=== PATIENT | female | born 1980 | race Caucasian/White ===

== ENCOUNTER 2016-12-23 07:40 | Outpatient (CLI) | payer BC ==
[2016-12-23 11:53] LABS: BASOPHILS # (AUTO) 0.1 10^3/uL (0.0-0.1); BASOPHILS % (AUTO) 1.2 %; EOSINOPHILS # (AUTO) 0.2 10^3/uL (0.0-0.7); EOSINOPHILS % (AUTO) 4.5 %; LYMPHOCYTES # (AUTO) 1.8 10^3/uL (1.5-3.5); LYMPHOCYTES % (AUTO) 36.9 %; MEAN CORPUSCULAR HEMOGLOBIN 32.7 pg (27.0-31.0); MEAN CORPUSCULAR HGB CONC 34.1 g/dL (32.0-36.0); MEAN CORPUSCULAR VOLUME 95.9 fL (81.0-99.0); MONOCYTES # (AUTO) 0.5 10^3/uL (0.0-1.0); MONOCYTES % (AUTO) 9.8 %; NEUTROPHILS # (AUTO) 2.4 10^3/uL (1.5-6.6); NEUTROPHILS % (AUTO) 47.6 %; RED BLOOD COUNT 3.96 10^6/uL (4.20-5.40); RED CELL DISTRIBUTION WIDTH 12.3 % (12.0-15.0)
[2016-12-23 12:08] LABS: ALBUMIN/GLOBULIN RATIO 1.5 (1.0-2.2); BILIRUBIN,TOTAL 0.8 mg/dL (0.2-1.0); BUN - BLOOD UREA NITROGEN 16 mg/dL (6-20); CALCIUM 9.1 mg/dL (8.5-10.3); CARBON DIOXIDE - CO2 27 mmol/L (21-32); CHLORIDE 104 mmol/L (101-111); CHOL/HDL RATIO 2.9 (<4.4); CHOLESTEROL 189 mg/dL; CREATININE 0.8 mg/dL (0.4-1.0); GFR - MDRD 82 (>89); GLUCOSE 96 mg/dL (70-100); HDL CHOLESTEROL 66 mg/dL; LDL/HDL RATIO 1.6 (<4.4); SODIUM 137 mmol/L (135-145); TOTAL PROTEIN 7.5 g/dL (6.7-8.2); TRIGLYCERIDES 87 mg/dL; VLDL CHOLESTEROL 17 mg/dL
== END 2016-12-23 07:41 | disposition home or self-care (01) ==
LOC: LAB.F 07:40
PROVIDERS: ATTEND Nurse Practitioner Family
DX: Z00.00 Encounter for general adult medical examination without abnormal findings (principal); E55.9 Vitamin D deficiency, unspecified; E78.5 Hyperlipidemia, unspecified
CPT/HCPCS: 36415; 80053; 80061; 82306; 85025

== ENCOUNTER 2017-01-01 11:02 | Outpatient (CLI) | payer BC ==
[2017-01-01 19:15] LABS: THYROID STIMULATING HORMONE 0.9 uIU/mL (0.34-5.60)
== END 2017-01-01 11:03 | disposition home or self-care (01) ==
LOC: LAB.F 11:02
PROVIDERS: ATTEND Nurse Practitioner Family
DX: R53.83 Other fatigue (principal)
CPT/HCPCS: 36415; 84436; 84439; 84443; 84481; 86376; 86800

== ENCOUNTER 2017-12-19 13:49 | Outpatient (CLI) | payer OTHER ==
--- NOTE | 2017-12-19 14:32 | XRAY Report ---
Procedure Date: 12/19/2017 Accession Number: [id number] / [id number] Procedure: XRS - Chest 2 View X-Ray CPT Code: 47273 FULL RESULT: EXAM: Chest 2 View X-Ray DATE: 12/19/2017 2:06 PM CLINICAL HISTORY: SOB, COUGH COMPARISON: None. TECHNIQUE: 2 views. FINDINGS: Lungs/Pleura: No focal opacities evident. No pneumothorax or pleural effusion. Normal volumes. Mediastinum: Heart and mediastinal contours are unremarkable. Other: None. IMPRESSION: Normal 2-view chest radiography. [facility]
== END 2017-12-19 13:50 | disposition home or self-care (01) ==
LOC: DI.S 13:49
PROVIDERS: ATTEND Nurse Practitioner Family
DX: R06.02 Shortness of breath (principal); R05 Cough
CPT/HCPCS: 71046

== ENCOUNTER 2018-07-23 09:29 | Outpatient (CLI) | payer OTHER ==
[2018-07-23 17:56] LABS: BASOPHILS % (AUTO) 0.8 %; EOSINOPHILS # (AUTO) 0.2 10^3/uL (0.0-0.7); EOSINOPHILS % (AUTO) 3.4 %; LYMPHOCYTES # (AUTO) 1.3 10^3/uL (1.5-3.5); LYMPHOCYTES % (AUTO) 25.6 %; MEAN CORPUSCULAR HEMOGLOBIN 32.7 pg (27.0-31.0); MEAN CORPUSCULAR HGB CONC 33.1 g/dL (32.0-36.0); MEAN CORPUSCULAR VOLUME 98.9 fL (81.0-99.0); MEAN PLATELET VOLUME 7.8 fL (7.9-10.8); MONOCYTES # (AUTO) 0.4 10^3/uL (0.0-1.0); MONOCYTES % (AUTO) 8.6 %; NEUTROPHILS # (AUTO) 3.2 10^3/uL (1.5-6.6); NEUTROPHILS % (AUTO) 61.6 %; PLT - PLATELET COUNT 254 10^3/uL (130-450); RED BLOOD COUNT 3.98 10^6/uL (4.20-5.40); RED CELL DISTRIBUTION WIDTH 12.5 % (12.0-15.0); WHITE BLOOD COUNT 5.2 x10^3/uL (4.8-10.8)
[2018-07-23 18:24] LABS: ALBUMIN 4.3 g/dL (3.2-5.5); ALBUMIN/GLOBULIN RATIO 1.3 (1.0-2.2); ALKALINE PHOSPHATASE 51 IU/L (42-121); ALT ALANINE AMINOTRANSFERASE 15 IU/L (10-60); AST ASPARTATE AMINOTRANSFERASE 24 IU/L (10-42); BUN - BLOOD UREA NITROGEN 14 mg/dL (6-20); CALCIUM 8.9 mg/dL (8.5-10.3); CARBON DIOXIDE - CO2 27 mmol/L (21-32); CHLORIDE 104 mmol/L (101-111); CHOL/HDL RATIO 2.9 (<4.4); CHOLESTEROL 194 mg/dL; CREATININE 0.9 mg/dL (0.4-1.0); GFR - MDRD 71 (>89); GLUCOSE 94 mg/dL (70-100); HDL CHOLESTEROL 67 mg/dL; LDL CHOLESTEROL,CALCULATED 106 mg/dL; LDL/HDL RATIO 1.6 (<4.4); SODIUM 137 mmol/L (135-145); TOTAL PROTEIN 7.7 g/dL (6.7-8.2); VLDL CHOLESTEROL 21 mg/dL
== END 2018-07-23 09:30 | disposition home or self-care (01) ==
LOC: LAB.F 09:29
PROVIDERS: ATTEND Nurse Practitioner Family
DX: Z00.00 Encounter for general adult medical examination without abnormal findings (principal); E55.9 Vitamin D deficiency, unspecified; E78.5 Hyperlipidemia, unspecified
CPT/HCPCS: 36415; 80053; 80061; 82306; 83721; 85025

== ENCOUNTER 2019-11-02 06:49 | Outpatient (CLI) | payer OTHER ==
[2019-11-02 07:04] LABS: BASOPHILS # (AUTO) 0.1 10^3/uL (0.0-0.1); BASOPHILS % (AUTO) 1.3 %; EOSINOPHILS # (AUTO) 0.1 10^3/uL (0.0-0.7); EOSINOPHILS % (AUTO) 2.4 %; HGB - HEMOGLOBIN 12.6 g/dL (12.0-16.0); LYMPHOCYTES # (AUTO) 2.2 10^3/uL (1.5-3.5); LYMPHOCYTES % (AUTO) 39.4 %; MEAN CORPUSCULAR HEMOGLOBIN 32.7 pg (27.0-31.0); MEAN CORPUSCULAR HGB CONC 32.6 g/dL (32.0-36.0); MEAN CORPUSCULAR VOLUME 100.5 fL (81.0-99.0); MEAN PLATELET VOLUME 9.1 fL (7.9-10.8); MONOCYTES # (AUTO) 0.6 10^3/uL (0.0-1.0); MONOCYTES % (AUTO) 10.1 %; NEUTROPHILS # (AUTO) 2.5 10^3/uL (1.5-6.6); NEUTROPHILS % (AUTO) 46.6 %; PLT - PLATELET COUNT 247 10^3/uL (130-450); RED BLOOD COUNT 3.85 10^6/uL (4.20-5.40); WHITE BLOOD COUNT 5.5 x10^3/uL (4.8-10.8)
[2019-11-02 07:21] LABS: ALBUMIN 4.2 g/dL (3.2-5.5); ALBUMIN/GLOBULIN RATIO 1.2 (1.0-2.2); BILIRUBIN,TOTAL 0.8 mg/dL (0.2-1.0); CALCIUM 8.9 mg/dL (8.5-10.3); CREATININE 0.9 mg/dL (0.4-1.0); TOTAL PROTEIN 7.6 g/dL (6.7-8.2)
--- NOTE | 2019-11-02 08:28 | Ultrasound Report ---
Reason: LEFT UPPER QUADRANT PAIN Procedure Date: 11/02/2019 Accession Number: [id number] / [id number] Procedure: US - Abdomen Complete CPT Code: Final Report FULL RESULT: EXAM: ABDOMEN ULTRASOUND EXAM DATE: 11/02/2019 07:58 AM. CLINICAL HISTORY: LEFT UPPER QUADRANT PAIN. COMPARISON: None. TECHNIQUE: Real-time scanning was performed with static images obtained. FINDINGS: Liver: Liver parenchyma is heterogeneous and moderately hyperechoic. No discrete liver masses or intrahepatic bile duct dilation. However, evaluation for masses is limited secondary to the echogenicity. Right liver measures 15.2 cm. Main portal vein flow: Hepatopetal. Gallbladder: Normal. No stones, wall thickening, or sonographic Alvarado's sign. Biliary System: Common bile duct measures 4.8 mm. No intrahepatic or extrahepatic ductal dilatation. Pancreas: Visualized portion is unremarkable. Kidneys: Right: 10.8 cm longitudinally. No contour-deforming mass, stones, or hydronephrosis. Prominent renal pyramids are noted. Left: 10.7 cm longitudinally. No contour-deforming mass, stones, or hydronephrosis. Spleen: Length measures 9.5 cm. Normal in size and echotexture. Aorta and Inferior Vena Cava: Unremarkable. Other: At the site of the patient's discomfort, there is a probable small fat-containing reducible periumbilical hernia. No incarcerated bowel. Defect measures up to 0.6 cm. IMPRESSION: 1. No liver mass or intrahepatic dilation.Echogenic probably fatty liver. 2. Normal gallbladder and common bile duct. 3. Normal pancreas. 4. Suspected small fat containing periumbilical hernia. RAD[facility]
== END 2019-11-02 06:50 | disposition home or self-care (01) ==
LOC: DI 06:49
PROVIDERS: ATTEND Nurse Practitioner Family
DX: R10.12 Left upper quadrant pain (principal)
CPT/HCPCS: 36415; 76700; 80053; 85025

== ENCOUNTER 2019-11-04 07:34 | Outpatient (CLI) | payer OTHER ==
[2019-11-04 08:21] LABS: BILIRUBIN,URINE NEGATIVE (NEGATIVE); GLUCOSE, URINE (UA) NEGATIVE (NEGATIVE); KETONES,URINE (UA) NEGATIVE (NEGATIVE); LEUKOCYTE ESTERASE, URINE NEGATIVE (NEGATIVE); NITRITE,URINE NEGATIVE (NEGATIVE); OCCULT BLOOD,URINE NEGATIVE (NEGATIVE); PROTEIN,URINE NEGATIVE (NEGATIVE); UROBILINOGEN,URINE 0.2 (NORMAL) E.U./dL (NORMAL)
[2019-11-04 08:35] LABS: CLARITY,URINE CLEAR (CLEAR)
[2019-11-04 08:44] LABS: BACTERIA,URINE Rare /HPF (None Seen); RBC,URINE 0-5 /HPF (0-5); SQUAMOUS EPITHELIAL CELL,UR RARE Squamous (<= Few)
[2019-11-04 09:16] LABS: HB2 TOTAL 12.8 g/dL; HEMOGLOBIN A1C 0.42 g/dL; HEMOGLOBIN A1C % 5.2 % (4.6-6.2)
== END 2019-11-04 07:35 | disposition home or self-care (01) ==
LOC: LAB 07:34
PROVIDERS: ATTEND Nurse Practitioner Family
DX: R30.0 Dysuria (principal); R73.9 Hyperglycemia, unspecified
CPT/HCPCS: 36415; 81001; 82947; 83036; 83921; 87086

== ENCOUNTER 2020-03-31 07:13 | Outpatient (CLI) | payer OTHER ==
[2020-03-31 15:41] LABS: BASOPHILS # (AUTO) 0.1 10^3/uL (0.0-0.1); BASOPHILS % (AUTO) 1.2 %; EOSINOPHILS # (AUTO) 0.1 10^3/uL (0.0-0.7); EOSINOPHILS % (AUTO) 2.3 %; HGB - HEMOGLOBIN 12.5 g/dL (12.0-16.0); LYMPHOCYTES # (AUTO) 1.8 10^3/uL (1.5-3.5); LYMPHOCYTES % (AUTO) 41.5 %; MEAN CORPUSCULAR HEMOGLOBIN 33.4 pg (27.0-31.0); MEAN CORPUSCULAR HGB CONC 32.3 g/dL (32.0-36.0); MEAN CORPUSCULAR VOLUME 103.5 fL (81.0-99.0); MEAN PLATELET VOLUME 9.5 fL (7.9-10.8); MONOCYTES # (AUTO) 0.5 10^3/uL (0.0-1.0); MONOCYTES % (AUTO) 10.5 %; NEUTROPHILS # (AUTO) 1.9 10^3/uL (1.5-6.6); NEUTROPHILS % (AUTO) 44.3 %; PLT - PLATELET COUNT 280 10^3/uL (130-450); RED BLOOD COUNT 3.74 10^6/uL (4.20-5.40); RED CELL DISTRIBUTION WIDTH 12.5 % (12.0-15.0); WHITE BLOOD COUNT 4.3 x10^3/uL (4.8-10.8)
[2020-03-31 16:14] LABS: ALBUMIN 4.3 g/dL (3.2-5.5); ALBUMIN/GLOBULIN RATIO 1.5 (1.0-2.2); ALKALINE PHOSPHATASE 44 IU/L (42-121); ALT ALANINE AMINOTRANSFERASE 15 IU/L (10-60); AST ASPARTATE AMINOTRANSFERASE 21 IU/L (10-42); BILIRUBIN,TOTAL 0.7 mg/dL (0.2-1.0); BUN - BLOOD UREA NITROGEN 10 mg/dL (6-20); CALCIUM 9.1 mg/dL (8.5-10.3); CARBON DIOXIDE - CO2 27 mmol/L (21-32); CHLORIDE 102 mmol/L (101-111); CHOL/HDL RATIO 2.2 (<4.4); CHOLESTEROL 179 mg/dL; CREATININE 0.9 mg/dL (0.4-1.0); GLUCOSE 97 mg/dL (70-100); HDL CHOLESTEROL 80 mg/dL; LDL CHOLESTEROL,CALCULATED 89 mg/dL; LDL/HDL RATIO 1.1 (<4.4); SODIUM 138 mmol/L (135-145); TOTAL PROTEIN 7.2 g/dL (6.7-8.2); VLDL CHOLESTEROL 10 mg/dL
== END 2020-03-31 07:14 | disposition home or self-care (01) ==
LOC: LAB.S 07:13
PROVIDERS: ATTEND Nurse Practitioner Family
DX: Z00.00 Encounter for general adult medical examination without abnormal findings (principal); E78.5 Hyperlipidemia, unspecified; E55.9 Vitamin D deficiency, unspecified
CPT/HCPCS: 36415; 80053; 80061; 82306; 82728; 83721; 85025

== ENCOUNTER 2020-05-22 11:14 | Outpatient (CLI) | payer OTHER ==
[2020-05-22 14:37] LABS: BASOPHILS # (AUTO) 0.1 10^3/uL (0.0-0.1); BASOPHILS % (AUTO) 0.8 %; EOSINOPHILS % (AUTO) 0.5 %; HGB - HEMOGLOBIN 12.3 g/dL (12.0-16.0); LYMPHOCYTES # (AUTO) 1.2 10^3/uL (1.5-3.5); LYMPHOCYTES % (AUTO) 18.3 %; MEAN CORPUSCULAR HEMOGLOBIN 33.2 pg (27.0-31.0); MEAN CORPUSCULAR HGB CONC 32.9 g/dL (32.0-36.0); MEAN CORPUSCULAR VOLUME 101.1 fL (81.0-99.0); MEAN PLATELET VOLUME 9.9 fL (7.9-10.8); MONOCYTES # (AUTO) 0.4 10^3/uL (0.0-1.0); MONOCYTES % (AUTO) 6.4 %; NEUTROPHILS # (AUTO) 4.8 10^3/uL (1.5-6.6); NEUTROPHILS % (AUTO) 73.7 %; PLT - PLATELET COUNT 301 10^3/uL (130-450); RED CELL DISTRIBUTION WIDTH 11.8 % (12.0-15.0); WHITE BLOOD COUNT 6.5 x10^3/uL (4.8-10.8)
[2020-05-22 15:32] LABS: ALBUMIN 4.4 g/dL (3.2-5.5); ALBUMIN/GLOBULIN RATIO 1.4 (1.0-2.2); ALKALINE PHOSPHATASE 40 IU/L (42-121); ALT ALANINE AMINOTRANSFERASE 18 IU/L (10-60); AST ASPARTATE AMINOTRANSFERASE 22 IU/L (10-42); BILIRUBIN,TOTAL 0.8 mg/dL (0.2-1.0); BUN - BLOOD UREA NITROGEN 16 mg/dL (6-20); CALCIUM 9.4 mg/dL (8.5-10.3); CARBON DIOXIDE - CO2 26 mmol/L (21-32); CHLORIDE 98 mmol/L (101-111); CREATININE 0.8 mg/dL (0.4-1.0); GLUCOSE 131 mg/dL (70-100); SODIUM 137 mmol/L (135-145); TOTAL PROTEIN 7.5 g/dL (6.7-8.2)
[2020-05-22 15:37] LABS: CRP HIGH SENSITIVITY < 0.5 mg/L
== END 2020-05-22 11:15 | disposition home or self-care (01) ==
LOC: LAB.S 11:14
PROVIDERS: ATTEND Nurse Practitioner Family
DX: R50.9 Fever, unspecified (principal); R10.2 Pelvic and perineal pain
CPT/HCPCS: 36415; 80053; 85025; 86141

== ENCOUNTER 2021-05-16 11:30 | Outpatient (CLI) | payer BC, OTHER ==
[2021-05-16 21:21] LABS: BACTERIAL VAGINOSIS DNA POSITIVE (NEGATIVE); CANDIDA GLABRATA DNA NEGATIVE (NEGATIVE); CANDIDA GROUP DNA POSITIVE (NEGATIVE); CANDIDA KRUSEI DNA NEGATIVE (NEGATIVE); TRICHOMONAS VAGINALIS DNA NEGATIVE (NEGATIVE)
[2021-05-16 22:04] LABS: CHLAMYDIA TRACHOMATIS DNA NEGATIVE (NEGATIVE); NEISSERIA GONORRHOEAE DNA NEGATIVE (NEGATIVE); TRICHOMONAS VAGINALIS DNA NEGATIVE (NEGATIVE)
== END 2021-05-16 23:59 | disposition home or self-care (01) ==
LOC: LAB 11:30
PROVIDERS: ATTEND Nurse Practitioner Obstetrics & Gynecology
DX: N89.8 Other specified noninflammatory disorders of vagina (principal); Z11.3 Encounter for screening for infections with a predominantly sexual mode of transmission
CPT/HCPCS: 87491; 87591; 87661; 87801

== ENCOUNTER 2021-08-12 16:20 | Emergency (ER) | payer OTHER ==
[2021-08-12] MEDS ORDERED: IBUPROFEN 800 MG TABLET PO STA (16:31)
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
[2021-08-12 16:38] VITALS: BP 136/92
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
== END 2021-08-12 17:10 | disposition home or self-care (01) ==
LOC: EDUNIT# → ED 16:20
DX: S09.90XA Unspecified injury of head, initial encounter (principal); M54.2 Cervicalgia; Y04.2XXA Assault by strike against or bumped into by another person, initial encounter; Y93.89 Activity, other specified; Y92.009 Unspecified place in unspecified non-institutional (private) residence as the place of occurrence of the external cause
CPT/HCPCS: 70450; 72125; 99282; 99284; A9270

== ENCOUNTER 2022-05-28 12:39 | Outpatient (CLI) | payer OTHER ==
[2022-05-28 12:55] LABS: HCT - HEMATOCRIT 36.7 % (37.0-47.0); HGB - HEMOGLOBIN 12.2 g/dL (12.0-16.0); MEAN CORPUSCULAR HEMOGLOBIN 33.4 pg (27.0-31.0); MEAN CORPUSCULAR HGB CONC 33.2 g/dL (32.0-36.0); MEAN CORPUSCULAR VOLUME 100.5 fL (81.0-99.0); MEAN PLATELET VOLUME 9.2 fL (7.9-10.8); RED BLOOD COUNT 3.65 10^6/uL (4.20-5.40); RED CELL DISTRIBUTION WIDTH 11.9 % (12.0-15.0); WHITE BLOOD COUNT 5.6 x10^3/uL (4.8-10.8)
[2022-05-28 13:21] LABS: THYROID STIMULATING HORMONE 0.7 uIU/mL (0.34-5.60)
[2022-05-28 13:25] LABS: FREE T4 (FREE THYROXINE) 0.78 ng/dL (0.58-1.64)
[2022-05-28 13:32] LABS: ALBUMIN 4.6 g/dL (3.2-5.5); ALBUMIN/GLOBULIN RATIO 1.4 (1.0-2.2); ALKALINE PHOSPHATASE 51 IU/L (42-121); ALT ALANINE AMINOTRANSFERASE 18 IU/L (10-60); AST ASPARTATE AMINOTRANSFERASE 26 IU/L (10-42); BILIRUBIN,TOTAL 0.8 mg/dL (0.2-1.0); BUN - BLOOD UREA NITROGEN 18 mg/dL (6-20); CALCIUM 9.7 mg/dL (8.5-10.3); CARBON DIOXIDE - CO2 26 mmol/L (21-32); CHLORIDE 99 mmol/L (101-111); CHOLESTEROL 203 mg/dL; CREATININE 0.9 mg/dL (0.4-1.0); GFR - MDRD 70 (>89); GLUCOSE 92 mg/dL (70-100); HDL CHOLESTEROL 104 mg/dL; POTASSIUM 4.1 mmol/L (3.5-5.0); SODIUM 137 mmol/L (135-145); TRIGLYCERIDES 32 mg/dL
== END 2022-05-28 12:40 | disposition home or self-care (01) ==
LOC: LAB 12:39
PROVIDERS: ATTEND Nurse Practitioner Obstetrics & Gynecology
DX: Z01.89 Encounter for other specified special examinations (principal)
CPT/HCPCS: 36415; 80053; 80061; 83721; 84439; 84443; 85027

== ENCOUNTER 2022-07-25 08:00 | Outpatient (CLI) | payer OTHER ==
[2022-07-26 22:59] LABS: BACTERIAL VAGINOSIS DNA NEGATIVE (NEGATIVE); CANDIDA GLABRATA DNA NEGATIVE (NEGATIVE); CANDIDA GROUP DNA NEGATIVE (NEGATIVE); CANDIDA KRUSEI DNA NEGATIVE (NEGATIVE); TRICHOMONAS VAGINALIS DNA NEGATIVE (NEGATIVE)
[2022-07-27 00:01] LABS: CHLAMYDIA TRACHOMATIS DNA NEGATIVE (NEGATIVE); NEISSERIA GONORRHOEAE DNA NEGATIVE (NEGATIVE); TRICHOMONAS VAGINALIS DNA NEGATIVE (NEGATIVE)
== END 2022-07-25 23:59 | disposition home or self-care (01) ==
LOC: LAB.WC 08:00
PROVIDERS: ATTEND Obstetrics & Gynecology
DX: N89.8 Other specified noninflammatory disorders of vagina (principal); Z11.3 Encounter for screening for infections with a predominantly sexual mode of transmission
CPT/HCPCS: 81514; 87491; 87591; 87661

== ENCOUNTER 2022-08-07 19:12 | Emergency (ER) | payer OTHER ==
[2022-08-07 19:28] VITALS: BP 113/67
[2022-08-07] MEDS ORDERED: ONDANSETRON ODT 4 MG TABLET TL STA (19:37)
[2022-08-07] MEDS ORDERED: HYDROcod/ACETAM 5/325 MG TABLET PO STA (19:37)
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
--- OUTSIDE RECORDS SUMMARY | 2022-08-07 19:58 | EXTERNAL MEDICAL SUMMARY RPT | Continuity of Care Document ---
:1980 Author Organization [facility] Address [address] [place] [address] Phone Care Team Providers Name Role Phone Unavailable Unavailable Unavailable Yuliet Tripp Cnm, Alicia Unavailable Unavailable Allergies No information. Encounters No information. Functional Status No information. Immunizations No information. Medications No information. Problems No information. Procedures No information. Results/Labs test date author facility value unit interpret ation Result panel 1 (unknown) (no date) (unknown) All (no value) (units unknown ) (unknown) Result panel 2 (unknown) (no date) (unknown) All (no value) (units unknown ) (unknown) Result panel 3 (unknown) (no date) (unknown) All (no value) (units unknown ) (unknown) Result panel 4 (unknown) (no date) (unknown) All (no value) (units unknown ) (unknown) Result panel 5 (unknown) (no date) (unknown) All (no value) (units unknown ) (unknown) Result panel 6 (unknown) (no date) (unknown) All (no value) (units unknown ) (unknown) Result panel 7 (unknown) (no date) (unknown) All (no value) (units unknown ) (unknown) Result panel 8 (unknown) (no date) (unknown) All (no value) (units unknown ) (unknown) Result panel 9 (unknown) (no date) (unknown) All (no value) (units unknown ) (unknown) Result panel 10 (unknown) (no date) (unknown) All (no value) (units unknown ) (unknown) Result panel 11 (unknown) (no date) (unknown) All (no value) (units unknown ) (unknown) Result panel 12 (unknown) (no date) (unknown) All (no value) (units unknown ) (unknown) Result panel 13 (unknown) (no date) (unknown) All (no value) (units unknown ) (unknown) Result panel 14 (unknown) (no date) (unknown) All (no value) (units unknown ) (unknown) Result panel 15 (unknown) (no date) (unknown) All (no value) (units unknown ) (unknown) Result panel 16 (unknown) (no date) (unknown) All (no value) (units unknown ) (unknown) Result panel 17 (unknown) (no date) (unknown) All (no value) (units unknown ) (unknown) Result panel 18 (unknown) (no date) (unknown) All (no value) (units unknown ) (unknown) Result panel 19 (unknown) (no date) (unknown) All (no value) (units unknown ) (unknown) Result panel 20 (unknown) (no date) (unknown) All (no value) (units unknown ) (unknown) Result panel 21 (unknown) (no date) (unknown) All (no value) (units unknown ) (unknown) Result panel 22 (unknown) (no date) (unknown) All (no value) (units unknown ) (unknown) Result panel 23 (unknown) (no date) (unknown) All (no value) (units unknown ) (unknown) Result panel 24 (unknown) (no date) (unknown) All (no value) (units unknown ) (unknown) Result panel 25 (unknown) (no date) (unknown) All (no value) (units unknown ) (unknown) Result panel 26 (unknown) (no date) (unknown) All (no value) (units unknown ) (unknown) Result panel 27 (unknown) (no date) (unknown) All (no value) (units unknown ) (unknown) Result panel 28 (unknown) (no date) (unknown) All (no value) (units unknown ) (unknown) Result panel 29 (unknown) (no date) (unknown) All (no value) (units unknown ) (unknown) Result panel 30 (unknown) (no date) (unknown) All (no value) (units unknown ) (unknown) Result panel 31 (unknown) (no date) (unknown) All (no value) (units unknown ) (unknown) Result panel 32 (unknown) (no date) (unknown) All (no value) (units unknown ) (unknown) Result panel 33 (unknown) (no date) (unknown) All (no value) (units unknown ) (unknown) Result panel 34 (unknown) (no date) (unknown) All (no value) (units unknown ) (unknown) Result panel 35 (unknown) (no date) (unknown) All (no value) (units unknown ) (unknown) Result panel 36 (unknown) (no date) (unknown) All (no value) (units unknown ) (unknown) Result panel 37 (unknown) (no date) (unknown) All (no value) (units unknown ) (unknown) Result panel 38 (unknown) (no date) (unknown) All (no value) (units unknown ) (unknown) Result panel 39 (unknown) (no date) (unknown) All (no value) (units unknown ) (unknown) Result panel 40 (unknown) (no date) (unknown) All (no value) (units unknown ) (unknown) Result panel 41 (unknown) (no date) (unknown) All (no value) (units unknown ) (unknown) Result panel 42 (unknown) (no date) (unknown) All (no value) (units unknown ) (unknown) Result panel 43 (unknown) (no date) (unknown) All (no value) (units unknown ) (unknown) Result panel 44 (unknown) (no date) (unknown) All (no value) (units unknown ) (unknown) Result panel 45 (unknown) (no date) (unknown) All (no value) (units unknown ) (unknown) Result panel 46 (unknown) (no date) (unknown) All (no value) (units unknown ) (unknown) Result panel 47 (unknown) (no date) (unknown) All (no value) (units unknown ) (unknown) Result panel 48 (unknown) (no date) (unknown) All (no value) (units unknown ) (unknown) Result panel 49 (unknown) (no date) (unknown) All (no value) (units unknown ) (unknown) Result panel 50 (unknown) (no date) (unknown) All (no value) (units unknown ) (unknown) Result panel 51 (unknown) (no date) (unknown) All (no value) (units unknown ) (unknown) Result panel 52 (unknown) (no date) (unknown) All (no value) (units unknown ) (unknown) Result panel 53 (unknown) (no date) (unknown) All (no value) (units unknown ) (unknown) Result panel 54 (unknown) (no date) (unknown) All (no value) (units unknown ) (unknown) Result panel 55 (unknown) (no date) (unknown) All (no value) (units unknown ) (unknown) Result panel 56 (unknown) (no date) (unknown) All (no value) (units unknown ) (unknown) Result panel 57 (unknown) (no date) (unknown) All (no value) (units unknown ) (unknown) Result panel 58 (unknown) (no date) (unknown) All (no value) (units unknown ) (unknown) Result panel 59 (unknown) (no date) (unknown) All (no value) (units unknown ) (unknown) Result panel 60 (unknown) (no date) (unknown) All (no value) (units unknown ) (unknown) Result panel 61 (unknown) (no date) (unknown) All (no value) (units unknown ) (unknown) Result panel 62 (unknown) (no date) (unknown) All (no value) (units unknown ) (unknown) Result panel 63 (unknown) (no date) (unknown) All (no value) (units unknown ) (unknown) Result panel 64 (unknown) (no date) (unknown) All (no value) (units unknown ) (unknown) Result panel 65 (unknown) (no date) (unknown) All (no value) (units unknown ) (unknown) Result panel 66 (unknown) (no date) (unknown) All (no value) (units unknown ) (unknown) Result panel 67 (unknown) (no date) (unknown) All (no value) (units unknown ) (unknown) Result panel 68 (unknown) (no date) (unknown) All (no value) (units unknown ) (unknown) Result panel 69 (unknown) (no date) (unknown) All (no value) (units unknown ) (unknown) Result panel 70 (unknown) (no date) (unknown) All (no value) (units unknown ) (unknown) Result panel 71 (unknown) (no date) (unknown) All (no value) (units unknown ) (unknown) Result panel 72 (unknown) (no date) (unknown) All (no value) (units unknown ) (unknown) Result panel 73 (unknown) (no date) (unknown) All (no value) (units unknown ) (unknown) Result panel 74 (unknown) (no date) (unknown) All (no value) (units unknown ) (unknown) Result panel 75 (unknown) (no date) (unknown) All (no value) (units unknown ) (unknown) Result panel 76 (unknown) (no date) (unknown) All (no value) (units unknown ) (unknown) Result panel 77 (unknown) (no date) (unknown) All (no value) (units unknown ) (unknown) Result panel 78 (unknown) (no date) (unknown) All (no value) (units unknown ) (unknown) Result panel 79 (unknown) (no date) (unknown) All (no value) (units unknown ) (unknown) Result panel 80 (unknown) (no date) (unknown) All (no value) (units unknown ) (unknown) Result panel 81 (unknown) (no date) (unknown) All (no value) (units unknown ) (unknown) Result panel 82 (unknown) (no date) (unknown) All (no value) (units unknown ) (unknown) Result panel 83 (unknown) (no date) (unknown) All (no value) (units unknown ) (unknown) Result panel 84 (unknown) (no date) (unknown) All (no value) (units unknown ) (unknown) Result panel 85 (unknown) (no date) (unknown) All (no value) (units unknown ) (unknown) Result panel 86 (unknown) (no date) (unknown) All (no value) (units unknown ) (unknown) Result panel 87 (unknown) (no date) (unknown) All (no value) (units unknown ) (unknown) Result panel 88 (unknown) (no date) (unknown) All (no value) (units unknown ) (unknown) Result panel 89 (unknown) (no date) (unknown) All (no value) (units unknown ) (unknown) Result panel 90 (unknown) (no date) (unknown) All (no value) (units unknown ) (unknown) Result panel 91 (unknown) (no date) (unknown) All (no value) (units unknown ) (unknown) Result panel 92 (unknown) (no date) (unknown) All (no value) (units unknown ) (unknown) Result panel 93 (unknown) (no date) (unknown) All (no value) (units unknown ) (unknown) Result panel 94 (unknown) (no date) (unknown) All (no value) (units unknown ) (unknown) Result panel 95 (unknown) (no date) (unknown) All (no value) (units unknown ) (unknown) Result panel 96 (unknown) (no date) (unknown) All (no value) (units unknown ) (unknown) Result panel 97 (unknown) (no date) (unknown) All (no value) (units unknown ) (unknown) Result panel 98 (unknown) (no date) (unknown) All (no value) (units unknown ) (unknown) Result panel 99 (unknown) (no date) (unknown) All (no value) (units unknown ) (unknown) Result panel 100 (unknown) (no date) (unknown) All (no value) (units unknown ) (unknown) Result panel 101 (unknown) (no date) (unknown) All (no value) (units unknown ) (unknown) Result panel 102 (unknown) (no date) (unknown) All (no value) (units unknown ) (unknown) Result panel 103 (unknown) (no date) (unknown) All (no value) (units unknown ) (unknown) Result panel 104 (unknown) (no date) (unknown) All (no value) (units unknown ) (unknown) Result panel 105 (unknown) (no date) (unknown) All (no value) (units unknown ) (unknown) Result panel 106 (unknown) (no date) (unknown) All (no value) (units unknown ) (unknown) Result panel 107 (unknown) (no date) (unknown) All (no value) (units unknown ) (unknown) Result panel 108 (unknown) (no date) (unknown) All (no value) (units unknown ) (unknown) Result panel 109 (unknown) (no date) (unknown) All (no value) (units unknown ) (unknown) Result panel 110 (unknown) (no date) (unknown) All (no value) (units unknown ) (unknown) Result panel 111 (unknown) (no date) (unknown) All (no value) (units unknown ) (unknown) Result panel 112 (unknown) (no date) (unknown) All (no value) (units unknown ) (unknown) Result panel 113 (unknown) (no date) (unknown) All (no value) (units unknown ) (unknown) Result panel 114 (unknown) (no date) (unknown) All (no value) (units unknown ) (unknown) Result panel 115 (unknown) (no date) (unknown) All (no value) (units unknown ) (unknown) Result panel 116 (unknown) (no date) (unknown) All (no value) (units unknown ) (unknown) Result panel 117 (unknown) (no date) (unknown) All (no value) (units unknown ) (unknown) Result panel 118 (unknown) (no date) (unknown) All (no value) (units unknown ) (unknown) Result panel 119 (unknown) (no date) (unknown) All (no value) (units unknown ) (unknown) Result panel 120 (unknown) (no date) (unknown) All (no value) (units unknown ) (unknown) Result panel 121 (unknown) (no date) (unknown) All (no value) (units unknown ) (unknown) Result panel 122 (unknown) (no date) (unknown) All (no value) (units unknown ) (unknown) Result panel 123 (unknown) (no date) (unknown) All (no value) (units unknown ) (unknown) Result panel 124 (unknown) (no date) (unknown) All (no value) (units unknown ) (unknown) Social History date description facility 2022-05-28 00:00 Unknown if ever smoked All 2022-05-29 00:00 Unknown if ever smoked All 2022-06-06 00:00 Unknown if ever smoked All Vital Signs No information.
--- NOTE | 2022-08-07 20:03 | XRAY Report ---
PROCEDURE: Foot 3 View LT INDICATIONS: injury TECHNIQUE: 3 views of the foot were acquired. COMPARISON: None FINDINGS: Bones: No fractures or dislocations. No suspicious bony lesions. Soft tissues: No tibiotalar joint effusion. Achilles tendon appears normal. IMPRESSION: No acute fracture. No osseous lesion. If symptoms and/or clinical suspicion for pathology continue, f urther assessment with repeat plain films, or advanced imaging (e.g., CT, MRI, or bone scan) is recom mended for further assessment. Reviewed by: Kaylee Shea MD on 08/07/2022 8:02 PM [facility] Approved by: Kaylee Shea MD on 08/07/2022 8:02 PM PST Station ID: [id number]
--- NOTE | 2022-08-07 20:05 | XRAY Report ---
PROCEDURE: Foot 3 View RT INDICATIONS: right foot injury (both feet) TECHNIQUE: 3 views of the foot were acquired. COMPARISON: None. FINDINGS: Bones: No fractures or dislocations. No suspicious bony lesions. Soft tissues: No tibiotalar joint effusion. Achilles tendon appears normal. IMPRESSION: 1. No fracture or dislocation. Reviewed by: Nagi Shukla MD on 08/07/2022 8:04 PM [facility] Approved by: Nagi Shukla MD on 08/07/2022 8:04 PM [facility] Station ID: [id number]
== END 2022-08-07 20:19 | disposition home or self-care (01) ==
LOC: ED 19:12
DX: S99.922A Unspecified injury of left foot, initial encounter (principal); T23.001A Burn of unspecified degree of right hand, unspecified site, initial encounter; V80.010A Animal-rider injured by fall from or being thrown from horse in noncollision accident, initial encounter; Y93.52 Activity, horseback riding; Y92.838 Other recreation area as the place of occurrence of the external cause
CPT/HCPCS: 73630; 99283; 99284; A9270; Q0162

== ENCOUNTER → 2023-07-08 | Outpatient (CLI) | payer OTHER | END | disposition short-term general hospital (02) | LOC: EMS 19:16 | DX: S01.112A Laceration without foreign body of left eyelid and periocular area, initial encounter (principal); S09.90XA Unspecified injury of head, initial encounter; W55.12XA Struck by horse, initial encounter; Y93.K9 Activity, other involving animal care; Y92.009 Unspecified place in unspecified non-institutional (private) residence as the place of occurrence of the external cause | CPT/HCPCS: A0425; A0429 ==

== ENCOUNTER 2023-11-20 08:00 | Outpatient (CLI) | payer OTHER ==
[2023-11-20 20:33] LABS: CHLAMYDIA TRACHOMATIS DNA NEGATIVE (NEGATIVE); NEISSERIA GONORRHOEAE DNA NEGATIVE (NEGATIVE)
[2023-11-20 21:57] LABS: BACTERIAL VAGINOSIS DNA NEGATIVE (NEGATIVE); CANDIDA GLABRATA DNA NEGATIVE (NEGATIVE); CANDIDA GROUP DNA NEGATIVE (NEGATIVE); CANDIDA KRUSEI DNA NEGATIVE (NEGATIVE); TRICHOMONAS VAGINALIS DNA NEGATIVE (NEGATIVE)
== END 2023-11-20 23:59 | disposition home or self-care (01) ==
LOC: LAB.WC 08:00
PROVIDERS: ATTEND Nurse Practitioner
DX: N89.8 Other specified noninflammatory disorders of vagina (principal); Z11.3 Encounter for screening for infections with a predominantly sexual mode of transmission
CPT/HCPCS: 81514; 81599; 87491; 87591; 87661

== ENCOUNTER 2023-12-05 14:50 | Outpatient (CLI) | payer OTHER ==
--- NOTE | 2023-12-08 09:32 | Mammography Report ---
BILATERAL DIGITAL SCREENING MAMMOGRAM 3D/2D WITH AUGMENTATION: 12/05/2023 CLINICAL: Baseline exam. Routine screening. No prior exams were available for comparison. Both breasts are heterogeneously dense, which may obscure small masses (category c / 51-75% glandular tissue). Bilateral breast implants are intact. No significant masses, calcifications, or other findings are seen in either breast. IMPRESSION: NEGATIVE There is no mammographic evidence of malignancy. A 1 year screening mammogram is recommended. Based on the Tyrer Cuzick model (a risk assessment model) the patient's lifetime risk is 14.0% and he r 10 year risk is 1.8%. According to the ACR, ACS, and NCCN guidelines, an annual breast MRI exam lulu ng with mammogram is recommended if the patient's lifetime risk is 20% or greater. This exam was interpreted at Station ID: [id number]. NOTE: For mammograms, a report in lay terms will be sent to the patient. Approximately 15% of breast malignancies will not be visualized mammographically. In the management of a palpable breast mass, a negative mammogram must not discourage biopsy of a clinically suspicious lesion. Electronically Signed By: Santino pope/[email or web address]:12/05/2023 16:36:21 letter sent: No_Letter ACR BI-RADS Category 1: Negative 3341F PARENCHYMAL PATTERN: (D) - The breast(s) demonstrate(s) heterogeneously dense fibroglandular richard joiner. BI-RADS CATEGORY: (1) - 1 RECOMMENDATION: (ANNUAL) - Recommend routine annual screening mammography. [id number] 1 year screening LATERALITY: (B)
== END 2023-12-05 14:51 | disposition home or self-care (01) ==
LOC: DI 14:50
PROVIDERS: ATTEND Nurse Practitioner
DX: Z12.31 Encounter for screening mammogram for malignant neoplasm of breast (principal); R92.333 Mammographic heterogeneous density, bilateral breasts; Z98.82 Breast implant status